=== PATIENT | male | born 1985 | race Caucasian/White ===

== ENCOUNTER 2020-12-02 12:40 | Emergency (ER) | payer OTHER, SELFPAY ==
[2020-12-02 12:52] VITALS: BP 120/85; PULSE 80; RESP 18; TEMP 37.2; O2SAT 96; BMI 25.7
--- NOTE | 2020-12-02 15:30 | XR_ITS ---
WS: [id number] Portable AP upright chest, 12/02/2020 Clinical Data: dyspnea/cough Comparison: PA and lateral chest, 01/30/2006 Findings: No nodules, masses or effusions are seen. The heart is normal. The pulmonary vascularity is not increased. No pneumonia or pneumothorax is seen. XR/XR chest 1V portable [id number] Impression: Negative chest.
--- NOTE | 2020-12-02 16:11 | W.ED.COVID ---
HPI - COVID General: Chief Complaint: COVID symptoms Stated Complaint: Covid Positive Time Seen by Provider: 12/02/20 15:42 Triage information: Has fever, cough or shortness of breath. No known COVID + exposure last 14 days History of Present Illness: HPI Narrative: Patient is a 35-year-old male comes to the ED with Covid symptoms. Symptoms started 4 days ago on Sunday. He has been having a cough that was dry and now starting to get wet over the last 24 hours. Endorses body aches, diarrhea that resolved and fever. Patient says his son had the same symptoms and they both bought the home Covid test and they both were positive. COVID 19 common symptoms: positive fever(s), chills, productive cough, fatigue and diarrhea; negative non-productive cough, dyspnea, headache(s), throat pain, nasal congestion, nausea or vomiting COVID 19 other sytmptoms: negative chest pain COVID Results: SARS-CoV-2 Antigen (Rapid) Positive (Negative) H 12/02/20 17:05 12/02/20 Nasal/Oral Coronavirus 2019 PCR Detected H 12/02/20 17:05 12/02/20 Review of Systems Const: Reports: fever(s), chills and fatigue Eyes: Denies: change in vision or eye discomfort ENMT: Denies: throat pain, odynophagia, nasal discharge or nasal congestion Card: Denies: chest pain, palpitations, edema, swelling of feet/ankles, dyspnea on exertion or orthopnea Resp: Reports: productive cough; Denies: dyspnea or non-productive cough GI: Reports: diarrhea; Denies: abdominal pain, nausea, vomiting, constipation or hematochezia : Denies: flank pain, difficulty urinating, dysuria or hematuria Musc: Denies: neck pain, back pain or extremity swelling Skin/Breast: Denies: rash or new lesions Neuro: Denies: headache(s), numbness in extremities or weakness in extremities PFSH ED PFSH: Medical History COPD (chronic obstructive pulmonary disease) History of perforated ear drum Social History Smoking and tobacco status: former smoker Second hand smoke exposure: No Alcohol intake: never Lives independently: Yes Household members: spouse Housing: House Marital status: Number of children: 3 History of recent travel: No Physical Exam Const: COMMON NORMALS: no acute distress, patient oriented x3, healthy appearing and alert GENERAL APPEARANCE: cooperative and comfortable HENMT: COMMON NORMALS: normocephalic HEAD & SCALP: normocephalic MOUTH: Normal oral and palatal mucosa present THROAT: posterior oropharynx normal and uvula midline Eye: COMMON NORMALS: Equal, round and reactive pupils present PUPIL: Yes Equal, round and reactive pupils present Neck/C-Spine: COMMON NORMALS: supple GENERAL: Yes normal visual inspection Resp: COMMON NORMALS: normal respiratory effort, No retractions, No use of accessory muscles and clear to auscultation bilaterally AUSCULTATION: clear to auscultation bilaterally Cardio: COMMON NORMALS: regular rate, regular rhythm, S1 normal heart sound present, S2 normal heart sound present, No gallops present (Cardio), No clicks present (Cardio), No murmurs present (Cardio) and Peripheral pulses 2+ throughout RATE: regular rate RHYTHM: regular rhythm HEART SOUNDS: S1 normal heart sound present and S2 normal heart sound present PERIPHERAL PULSES: Peripheral pulses 2+ throughout GI: COMMON NORMALS: Normal to inspection, nondistended, normoactive bowel sounds present, Soft to palpation, non-tender and no masses PALPATION: Yes Soft to palpation : COMMON NORMALS: Yes no CVA tenderness BLADDER/KIDNEY EXAM: Yes no CVA tenderness Back/Pelvis: COMMON NORMALS: no CVA tenderness Extremity: COMMON NORMALS: normal to inspection Neuro: COMMON NORMALS: patient oriented x3 and moves all extremities SENSORIUM/ORIENTATION: Yes alert Skin: GENERAL SKIN EXAM: dry skin Course Vital Signs: Vital signs: Vital Signs Temperature 99.0 F 12/02/20 12:52 Pulse Rate 80 12/02/20 12:52 Respiratory Rate 18 12/02/20 12:52 Blood Pressure 120/85 12/02/20 12:52 Pulse Oximetry 96 12/02/20 12:52 MDM - COVID MDM Narrative: Medical decision making narrative: Patient is a 35-year-old male comes to the ED with Covid symptoms. Vitals are stable and patient's lungs are clear to auscultation bilaterally. Patient was Covid tested and he was stable for discharge home. He was instructed on self quarantine and told to follow-up with his PCP in 7 to 10 days for reevaluation. Lab Data: Labs: Lab Results 12/02/20 12/02/20 Range/Units 17:05 17:05 Nasal/Oral COVID-1 9 PCR Detected H SARS-CoV-2 Ag (Rap id) Positive H (Negative) Imaging Data: CXR: Attestation: I personally reviewed and interpreted this imaging study as follows: Radiologist's impression: [address] [address] XRay Report Signed Patient: Etienne Broderick Unit #: [id number] : [id number] Age/Sex: 35 / M ADM Date: 12/02/20 Loc: ER Room/Bed: Attending Dr: Ordering Provider/Ordering MD: Deyvi Ramos DO Date of Service: 12/02/20 Procedure(s): XR chest 1V portable [id number] Accession Number(s): [id number] Report Number: [id number] WS: [id number] Portable AP upright chest, 12/02/2020 Clinical Data: dyspnea/cough Comparison: PA and lateral chest, 01/30/2006 Findings: No nodules, masses or effusions are seen. The heart is normal. The pulmonary vascularity is not increased. No pneumonia or pneumothorax is seen. XR/XR chest 1V portable [id number] Impression: Negative chest. Dictated By: Yamileth Rubin MD Signed By: Yamileth Rubin MD Signed Date/Time: 12/02/20 1630 DD/ 1629 COVID Results: SARS-CoV-2 Antigen (Rapid) Positive (Negative) H 12/02/20 17:05 12/02/20 Nasal/Oral Coronavirus 2019 PCR Detected H 12/02/20 17:05 12/02/20 Discharge Plan Discharge Patient Disposition: Home Clinical Impression: COVID-19 Condition: Stable Prescriptions: No Action No Known Home Medications RF: 0 prednisone 10 mg tablets,dose pack See Rx Instructions PO PER PKG DIR Qty: 21 RF: 0 Discharge Orders: Discharge ED (Routine); Ordered 12/02/20 Ordered By: Joe Mejia Referrals: Michael Abad MD [Primary Care Provider] - Discharge Diet: Regular Discharge Activity: Resume usual activity Patient Instructions: Viral Syndrome (ED) Activity Restrictions/Additional Instructions: Follow-up with medical provider as directed. Take medications as prescribed. Return to the ER or your medical provider if condition worsens. Please read and understand discharge instructions. Thank you for choosing [facility] for your healthcare needs today. Please realize this is an emergency room and that we are providing you with a medical screening exam and this may not be complete and all inclusive of all the testing and or work up that you may need to determine your ailment or severity of your illness. It is very important that you follow up as instructed or that you return to the Emergency Department should you have concerns or if your condition changes or worsens in any way. Coding Level of Care Code ED [employer] for Renny Savage Exam Comprehensive
[2020-12-02 18:07] LABS: SARS Covid-2 Antigen Positive (Negative)
[2020-12-03 18:02] LABS: Coronavirus Test Green County Detected
== END 2020-12-02 17:07 | disposition home or self-care (01) ==
PROVIDERS: Emergency Provider Physician Assistant; PCP Family Medicine
DX: U07.1 COVID-19 (principal); J44.9 Chronic obstructive pulmonary disease, unspecified; Z87.891 Personal history of nicotine dependence
CPT/HCPCS: 71045; 87426; 87635; 99283

== ENCOUNTER 2023-07-25 10:43 | Emergency (ER) | payer OTHER, SELFPAY ==
[2023-07-25 10:52] VITALS: BP 133/86; PULSE 76; RESP 16; TEMP 36.6; O2SAT 97
--- NOTE | 2023-07-25 12:23 | XRR_ITS ---
PROCEDURE INFORMATION: Exam: XR Lumbosacral Spine Exam date and time: 07/25/2023 12:41 PM Age: 38 years old Clinical indication: Patient HX: Last night developed low back pain, states has HX of low back pain, but worse x2 days; Additional info: Worse pain bilat l4/5 region, no new trauma, known oa TECHNIQUE: Imaging protocol: Radiologic exam of the lumbosacral spine. Views: 2 or 3 views. COMPARISON: No relevant prior studies available. FINDINGS: Bones/joints: Six lumbar type vertebral bodies which for the purposes of this dictation will be referred to as L1 through L6. Large left L6 transverse process causing a pseudoarticulation with the left sacral ala. Mild scoliosis. Moderate L6-S1 degenerative disc disease. Mild anterior wedge deformity of the L2 vertebral body is probably chronic, but is of uncertain age. Otherwise, unremarkable. Soft tissues: Unremarkable. XR/XR lumbar spine 2-3V* [id number] IMPRESSION: 1. Mild anterior wedge deformity L2 vertebral body is probably chronic, but is of uncertain age. 2. No other acute findings. 3. Additional details as above.
--- NOTE | 2023-07-25 12:25 | ED_ITS ---
HPI - Back Pain/Injury General: Chief Complaint: Back Pain/Injury Stated Complaint: back pain Time Seen by Provider: 07/25/23 11:42 History of Present Illness: Presents to the ER with complaints of worsening low back pain over the last couple. To the point that he rates it a 7 out of 10 and is having hard time moving. Patient has no known new trauma. Patient does have chronic low back pain and was medically discharged from the [employer] because of this. I was 7 or 8 years ago. Review of Systems General: Reports: 10 or more systems reviewed and unremarkable except in HPI and below PFSH ED PFSH: Medical History (Updated 07/25/23 @ 14:02 by Gary Roth DO) COPD (chronic obstructive pulmonary disease) History of perforated ear drum Social History Smoking and tobacco/nicotine status: former use of tobacco/nicotine Second hand smoke exposure: No Alcohol intake: never Substance/Drug Use: never Lives independently: Yes Household members: spouse Housing: House Marital status: Number of children: 3 Physical Exam Const: COMMON NORMALS: no acute distress, average body habitus, patient oriented x3, no limitations, healthy appearing, alert and well nourished HENMT: COMMON NORMALS: normocephalic, atraumatic, hearing grossly normal bilaterally, external ears normal, Normal external nose present, moist oral muc ous membranes and oropharynx normal HEAD & SCALP: normocephalic and atraumatic NOSE: Normal external nose present EXTERNAL EAR: Yes external ears normal Neck/C-Spine: COMMON NORMALS: no JVD Chest: COMMONS NORMALS: normal inspection of the chest and normal palpation of entire chest wall Resp: COMMON NORMALS: normal respiratory effort, No retractions, No use of accessory muscles and clear to auscultation bilaterally AUSCULTATION: clear to auscultation bilaterally Cardio: COMMON NORMALS: no JVD, regular rate, regular rhythm, S1 normal heart sound present, S2 normal heart sound present, No gallops present (Cardio), No clicks present (Cardio), No murmurs present (Cardio) and No rub (Cardio) RATE: regular rate RHYTHM: regular rhythm HEART SOUNDS: S1 normal heart sound present and S2 normal heart sound present GI: COMMON NORMALS: Normal to inspection, nondistended, normoactive bowel sounds present, Soft to palpation, non-tender, No hepatosplenomegaly present and no masses PALPATION: Yes Soft to palpation and Yes No hepatosplenomegaly present Back/Pelvis: OTHER: Tender to palpate over lumbar paraspinal musculature. No obvious tenderness to palpation over spinous processes, step-off, crepitus Neuro: COMMON NORMALS: patient oriented x3 SENSORIUM/ORIENTATION: Yes alert Course Vital Signs: Vital signs: Vital Signs Temperature 97.9 F 07/25/23 10:52 Pulse Rate 76 07/25/23 10:52 Respiratory Rate 16 07/25/23 10:52 Blood Pressure 133/86 07/25/23 10:52 Pulse Oximetry 97 07/25/23 14:29 Oxygen Delivery Me thod Room Air 07/25/23 10:52 MDM - Back Pain/Injury Medical Decision Making Patient was given 60 mg of Norflex 60 mg Toradol IM while waiting for the x-ray results to come back x-ray results showed no other acute findings other than possible mild anterior wedge deformity of L2 which is probably chronic but age is uncertain. These results was discussed with the patient patient's pain was moderately improved. Patient will be sent prescription to all drugstore and referred back to his family doc for further evaluation testing. Differential Diagnosis Likely strain of lumbar region; Unlikely lumbar radiculopathy, sciatica, renal colic, pyelonephritis, thoracic back pain, AAA or discitis Medical Records I reviewed the patient's medical records. Labs I reviewed the patient's lab results. Radiology Impressions Lumbar Spine X-Ray 07/25/23 12:23 IMPRESSION: 1. Mild anterior wedge deformity L2 vertebral body is probably chronic, but is of uncertain age. 2. No other acute findings. 3. Additional details as above. All radiology interpretation(s) finalized by discharge Discharge Plan Discharge Patient Disposition: Home Clinical Impression: Acute exacerbation of chronic low back pain Condition: Stable Prescriptions: New tramadol 50 mg tablet 50 mg PO Q8H PRN (Reason: pain) Qty: 14 0RF prednisone 50 mg tablet 50 mg PO DAILY Qty: 5 0RF No Action sertraline 50 mg tablet 50 mg PO QPM Discharge Orders: Discharge ED (Routine); Ordered 07/25/23 Ordered By: Gary Roth Referrals: Michael Abad MD [Primary Care Provider] - 1 week Patient Instructions: Acute Low Back Pain (ED), Lower Back Exercises (ED), Opioid Safety, Pain Management Activity Restrictions/Additional Instructions: Please take all medicine as prescribed. Please try these low back exercises as they may help. Please follow-up with your family practitioner within the next 7 days for further evaluation testing. Coding Level of Care Code ED [employer]inder for Renny Savage
[2023-07-25] MEDS: ketorolac 60 mg/2 mL INJ IM (12:45)
[2023-07-25] MEDS: orphenadrine 30 mg/mL Inj 2 mL 60 MG IM (12:45)
[2023-07-25 14:29] VITALS: O2SAT 97
== END 2023-07-25 14:29 | disposition home or self-care (01) ==
PROVIDERS: Emergency Provider Emergency Medicine; PCP Family Medicine
DX: G89.29 Other chronic pain (principal); M54.50 Low back pain, unspecified; J44.9 Chronic obstructive pulmonary disease, unspecified; Z87.891 Personal history of nicotine dependence
CPT/HCPCS: 72100; 96372; 99284; J1885; J2360